=== PATIENT | female | born 1960 | race Caucasian/White ===

== ENCOUNTER 2024-11-01 11:28 | Day surgery (SDC) | payer OTHER, SELFPAY ==
[2024-10-27 14:54] VITALS: BMI 27.9
--- NOTE | 2024-10-27 16:22 | EXP.HP ---
History of Present Illness *Admission Date: 11/01/24 *Reason for visit:: Personal history of adenomatous colon polyps *History of present illness: Mrs. Navarrete is a 64-year-old female who is here for screening/surveillance the patient colonoscopy secondary to a personal history of adenomatous colon polyps. The patient did have a larger adenomatous polyp (12 mm tubular adenoma) removed in May 2016. The patient's colonoscopy with ne in February 2021 revealed a larger 13 mm polyp (tubular adenoma) in the ascending colon and 3 additional diminutive polyps (small tubular adenomas x 2 and mucosal prolapse polyp x 1) which were removed. 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 The examination is deemed medically necessary for screening/surveillance colonoscopy. The patient has been seen, interviewed and examined prior to the procedure by both myself and the anesthesia provider. [facility] Disclaimer: The information contained in this section may have been updated after the patient was seen, as this information can be updated by other users. Medical History Hyperlipemia Anxiety Post-menopausal Bladder spasms Surgical History Hx of tonsillectomy History of left knee replacement Previous section Family History Other Family history of glioblastoma Social History (Updated 11/01/24 @ 12:01 by Anibal Musa CRNA) Smoking Status: Never smoker alcohol intake: current substance use type: denies use current occupational status: employed Travel in the last 8 weeks?: None Have you lived/traveled outside [place] in past 30 days?: No Contact w/someone who lives/traveled outside US past 30 days?: No Exposure to someone with infectious disease in past 14 days?: No Do you have a fever (greater than 100.4 F or 38 C)?: No Have you tested positive for COVID-19?: No Exposed to someone with COVID-19 in past 14 days?: No Do you have a sore throat?: No Do you have a cough?: No Do you have any weakness?: No Are you experiencing any nausea/vomitting?: No Do you have any diarrhea?: No Are you experiencing any unusual bleeding?: No Do you have any muscle aches/pain?: No Do you have any abdominal pain?: No Are you experiencing loss of taste or smell?: No Review of Systems Review of Systems Review of systems (narrative): Negative *Cardiovascular Comments: Negative *Gastrointestinal Comments: Negative *Genitourinary Comments: Negative *Musculoskeletal Comments: Negative *Neurologic Comments: Negative Meds Home Medications and Allergies Home Medications ?Medication ?Instructions ?Recorded ?Confirmed ?Type atorvastatin 20 mg tablet 20 mg PO HS 10/27/24 11/01/24 History escitalopram oxalate 20 mg tablet 20 mg PO DAILY 10/27/24 11/01/24 History estradiol 0.01% (0.1 mg/gram) 1 g vaginal WEEKLY 10/27/24 11/01/24 History vaginal cream oxybutynin chloride 2.5 mg tablet 2.5 mg PO DAILY 10/27/24 11/01/24 History New Prescriptions to Start Prescriptions: Allergies Allergy/AdvReac Type Severity Reaction Status Date / Time No Known Allergies Allergy Verified 11/01/24 11:49 Exam Data for Last 24 hours I & O for Last 24 hours: Intake & Output 10/24/24 10/25/24 10/26/24 10/27/24 23:59 23:59 23:59 23:59 Weight 168 lb *Routine HEENT Exam Head: Present normocephalic Eye: Present EOMI and PERRL ENT: Present mucous membranes moist *Routine Neck Exam Neck: Present supple *Routine Respiratory Exam Respiratory: Present CTA bilaterally *Routine Cardiovascular Exam Cardiovascular: Present RRR *Routine Abdominal Exam Abdominal: Present soft and normoactive bowel sounds; Absent tenderness *Routine Rectal Exam Rectal:: deferred *Routine Genitalia Exam Genitalia:: deferred *Routine Extremities Exam Extremities: Absent cyanosis, clubbing or edema *Routine Skin Exam Skin: Present warm; Absent rash *Routine Neurological Exam Neurological: Present alert and oriented X3 Assessment and Plan *Assessment and plan (1) Personal history of adenomatous and serrated colon polyps: Status: Acute Category: Medical Code(s): Z86.0101 - Personal history of adenomatous and serrated colon polyps Plan A/P: 1. Personal history of adenomatous colon polyps is the preprocedural diagnosis. The patient will be anesthetized/sedated using MAC sedation. The patient has been seen and examined. Cardiac and lung assessment prior to the examination is stable. Proceed with planned screening/surveillance colonoscopy.
[2024-11-01 11:52] VITALS: BP 157/74; PULSE 77; RESP 17; TEMP 36.4; O2SAT 96
[2024-11-01] MEDS: LACTATED RINGERS 1000ML 1,000 ML 50 ML IV (11:52)
--- NOTE | 2024-11-01 12:00 | EXP.ANES.CKL ---
[facility] Disclaimer: The information contained in this section may have been updated after the patient was seen, as this information can be updated by other users. Medical History Hyperlipemia Anxiety Post-menopausal Bladder spasms Surgical History Hx of tonsillectomy History of left knee replacement Previous section Family History Other Family history of glioblastoma Social History Smoking Status: Never smoker alcohol intake: current substance use type: denies use current occupational status: employed Travel in the last 8 weeks?: None [facility] Anesthesia Checklist Patient Identification Patient Identification: Arm Band Structural Data Admitted From: Home Planned Operative Procedure/s: Colonoscopy Consent for Planned Operative Procedure(s) Verified: Yes Verified Documents: Surgical Consent and History and Physical NPO Status Verified Time NPO: 08:30 (finished prep) Additional verifications Anesthesia Reactions: No Airway Assessment Mallampati Score:: Class II C-Spine Mobility Assessed: Yes TMJ Mobility Assessed: Yes Dentition: Good Dentition Neurological Assessment Level of Consciousness: Awake, Alert and Appropriate Anesthesia Plan Anesthesia Risk discussed: Yes Anesthesia Plan: Verified ASA Class: II Anesthesia Type: MAC
--- NOTE | 2024-11-01 12:12 | HMH.PROCNOTE ---
[facility] Procedure Note Date: 11/01/24 Time: 12:32 Procedure Note:: Colonoscopy Procedure Report: Colonoscopy Endoscopist: Gil Rabago II, MD Referring physician: JASON Baptiste, [id number] [id number], [place] [address] Date of Procedure: November 01, 2024 Equipment: Olympus [id number] adult colonoscope Sedation: MAC sedation Indication: Mrs. Navarrete is a 64-year-old female who is here for screening/surveillance the patient colonoscopy secondary to a personal history of adenomatous colon polyps. The patient did have a larger adenomatous polyp (12 mm tubular adenoma) removed in May 2016. The patient's colonoscopy with nj in February 2021 revealed another larger 13 mm polyp (tubular adenoma) in the ascending colon and 3 additional diminutive polyps (small tubular adenomas x 2 and mucosal prolapse polyp x 1) which were removed. She does have a long history of diarrhea predominant IBS. She will get intermittent diarrhea with urgency. She does state that this is exacerbated by coffee, stress or eating salads. She reports no rectal bleeding, abdominal pain or family history of colitis, Crohn's disease or colon cancer. She has had some intentional weight loss. The examination is deemed medically necessary for screening/surveillance colonoscopy. Procedure: Prior to the procedure, a history and physical exam was performed, and patient's medications and allergies were reviewed. The risks, benefits and alternatives of the sedation and procedure were discussed with the patient. All questions were answered and informed consent was obtained. The patient was brought to the procedure room. Patient identification and proposed procedure were verified by the physician and the nurse. The patient was placed in a left lateral decubitus position and the scope was passed under direct vision. Throughout the procedure, the patient's blood pressure, pulse, and oxygen saturations were monitored continuously. The colonoscopy was accomplished without difficulty. The patient tolerated the procedure well. Findings: On digital rectal examination there was normal rectal tone. There were no external hemorrhoids. The colonoscope was introduced through the anal canal to the rectum and advanced to the cecum. The ileocecal valve and appendiceal orifice were identified. The scope was advanced a short distance into the ileum which appeared grossly normal. The scope was then withdrawn into the colon. The cecum, ascending and transverse colon and mucosa were grossly normal. There were scattered diverticuli throughout the descending and sigmoid colon (LEFT colon). The rectum itself was normal. Upon retroflexion within the rectum there were grade 2 internal hemorrhoids. The preparation was excellent throughout with Limestone Preparation Score of 9. The cecal time was 12 minutes. Impression: 1. Left-sided diverticulosis 2. Grade 2 internal hemorrhoids Plan: I would recommend bulking fiber ([id number] FiberCon 1 tablet by mouth twice daily). I would recommend repeat screening/surveillance colonoscopy again in 5 years based upon her history of larger than average adenomatous colon polyps.
[2024-11-01 12:33] VITALS: BP 94/60; PULSE 82; RESP 14; TEMP 36.1; O2SAT 94
[2024-11-01 12:43] VITALS: BP 103/58; PULSE 70; RESP 15; TEMP 36.1; O2SAT 95
[2024-11-01 12:54] VITALS: BP 93/66; PULSE 90; RESP 16; TEMP 36.1; O2SAT 97
== END 2024-11-01 13:19 | disposition home or self-care (01) ==
PROVIDERS: Visit Provider Internal Medicine Gastroenterology
PROC: 0DJD8ZZ Inspection of Lower Intestinal Tract, Via Natural or Artificial Opening Endoscopic (ICD-10-PCS; CPT 45378; principal; 2024-11-01 13:00)
DX: Z12.11 Encounter for screening for malignant neoplasm of colon (principal); K64.1 Second degree hemorrhoids; K57.30 Diverticulosis of large intestine without perforation or abscess without bleeding; K58.0 Irritable bowel syndrome with diarrhea; Z86.0101 Personal history of adenomatous and serrated colon polyps; E78.5 Hyperlipidemia, unspecified; F41.9 Anxiety disorder, unspecified; N32.89 Other specified disorders of bladder; Z79.899 Other long term (current) drug therapy
CPT/HCPCS: 45378; J2003; J2704; J7120